=== PATIENT | female | born 1990 | race Caucasian/White ===

== ENCOUNTER 2017-09-05 00:55 | Inpatient (IN) | payer OTHER ==
[~2017-09-05] VITALS: Ht 157.5 cm; Wt 61.5 kg
[2017-09-05] VITALS (7 sets, daily range): BP systolic 126–158; BP diastolic 81–99; PULSE 59–109; TEMP 36.6–37; O2SAT 96–98; Ht 157.5 cm; Wt 61.5 kg
[2017-09-05] MEDS ORDERED: LACTATED RINGER'S 1000ML 1,000 ML IV SCH (00:59)
[2017-09-05] MEDS ORDERED: LACTATED RINGER'S 1000ML 1,000 ML IV PRN (00:59)
[2017-09-05] MEDS ORDERED: PENICILLIN G POTASSIUM IV 3 MU in DEXTROSE 5% 100ML 100 ML IV PRN (01:00)
[2017-09-05] MEDS ORDERED: PENICILLIN G POTASSIUM IV 6 MU in DEXTROSE 5% 250ML 250 ML IV ONE (01:00)
[2017-09-05] MEDS ORDERED: PRENTAB26 PO (01:03)
[2017-09-05] MEDS ORDERED: METH10TA2 PO (01:03)
[2017-09-05 01:34] LABS: HEMATOCRIT 34.7 % (37-47); HEMOGLOBIN 11.3 g/dL (12.0-16.0); MEAN CELL VOLUME 81.5 fL (80-100); MEAN CORPUSCULAR HEMOGLOBIN 26.5 pg (25-34); MEAN CORPUSCULAR HGB CONC 32.6 g/dl (32-36); MEAN PLATELET VOLUME 10.3 fL (7.4-10.4); PLATELET COUNT 239 K/uL (130-400); RED CELL DISTRIBUTION WIDTH CV 14.8 % (11.5-14.5); RED CELL DISTRIBUTION WIDTH SD 43.8 fL (36.4-46.3); WHITE BLOOD COUNT 9.76 K/uL (4.8-10.8)
[2017-09-05] MEDS ORDERED: BUPIVACAINE 0.25% 30 ML VIAL ONE (01:44)
[2017-09-05] MEDS ORDERED: EpHEDrine SULFATE INJ 50 MG/ML AMP ONE (01:44)
[2017-09-05] MEDS ORDERED: FENTANYL CITRATE INJ 50 MCG/1 ML 2 ML VIAL ONE (01:44)
[2017-09-05] MEDS ORDERED: FENTANYL 2MCG/ML ROPIV 1.25MG/ML 100ML BAG ONE (01:45)
[2017-09-05 01:56] LABS: ALBUMIN 2.6 gm/dl (3.4-5.0); TOTAL PROTEIN 7.4 gm/dl (6.4-8.2)
[2017-09-05] MEDS ORDERED: OXYTOCIN 30 UNITS/500ML NSS IV ONE (01:58)
[2017-09-05] MEDS ORDERED: SUPERCREAM 0.870 % 15GM JAR EXT PRN (02:30)
[2017-09-05] MEDS ORDERED: OXYTOCIN 30 UNITS/500ML NSS IV PRN (02:30)
[2017-09-05] MEDS ORDERED: DIPHTHERIA/TETANUS/PERTUSSIS 0.5 ML SYR/VIAL IM. ONE (02:30)
[2017-09-05] MEDS ORDERED: OXYCODONE/ACETAMINOPHEN 5-325 TAB PO PRN (02:30)
[2017-09-05] MEDS ORDERED: BENZOCAINE 20% AER SPR 82.5 GM CAN EXT PRN (02:30)
[2017-09-05] MEDS ORDERED: ACETAMINOPHEN 325 MG TAB PO PRN (02:30)
[2017-09-05] MEDS ORDERED: LANOLIN OINT EXT PRN (02:30)
[2017-09-05] MEDS ORDERED: HYDROCORTISONE ACETATE 25 MG SUPP PR PRN (02:30)
--- NOTE | 2017-09-05 03:09 | DELIVERY SUMMARY ---
DATE OF OPERATION: 09/05/2017 VAGINAL DELIVERY NOTE Da arrived in labor and delivery unannounced approximately 1 a.m. No care available for her. The patient said she did have some care in another part of [place] and we were unable to obtain records. She feels that she was approximately 37 weeks. She is an IV drug user and smoker. This is her fifth baby. The patient arrived at 6 cm, rapidly progressed to 8 cm and then membranes ruptured spontaneously. There was thin meconium. She was fully dilated there. She delivered by pushing and somewhat controllably. Mouth and then nares were suctioned. There was a nuchal cord passed over the head x1. Gentle traction used on the baby. No excessive force. Live vigorous infant. Cord clamped and cut. Cord gasses obtained. Cord blood obtained. Placenta removed with gentle traction. IV Pitocin started. No tearing noted. Estimated blood loss 150 mL. I attest to the content of the Intraoperative Record and any orders documented therein. Any exception s are noted below.
[2017-09-05] MEDS: ACETAMINOPHEN/CODEINE 300/30MG TAB PO PRN ×2 (03:22→09:05)
[2017-09-05] MEDS: PRENATAL VITAMIN TAB PO SCH (09:04)
[2017-09-05] MEDS: DOCUSATE SODIUM 100 MG CAP PO SCH ×2 (09:04→19:56)
[2017-09-05] MEDS: IBUPROFEN 600 MG TAB PO PRN ×3 (09:05→23:49)
[2017-09-06] MEDS: ACETAMINOPHEN/CODEINE 300/30MG TAB PO PRN ×2 (00:58→06:01)
--- NOTE | 2017-09-06 05:41 | Discharge Instructions ---
Discharge Instructions Date of Service September 06, 2017. Admission Reason for Admission: LABOR Discharge Discharge Diagnosis / Problem: after delivery Discharge Goals Goal(s): Routine recovery after delivery Medications Continue Dispensed Medications: dermaplast, tucks, inhaler, lansinoh Activity Recommendations Activity Limitations: as noted below . Instructions / Follow-Up Instructions / Follow-Up ACTIVITY RECOMMENDATIONS: * Gradual return to full activity over the next 2-3 weeks. * No lifting - nothing heavier than baby over the next 2-3 weeks. * Do not engage in vigorous exercise, sexual activity or sports until cleared by your physician. * Do not drive or operate any motorized equipment until cleared by your physician. * You may shower/bathe daily. MEDICATIONS: For discomfort or pain, you may use Acetaminophen (Tylenol), Ibuprofen (Advil), or Naproxen (Aleve) following the package directions. For constipation you may use Colace following the package directions. BREAST CARE: If you are not breast feeding: * Wear a supportive bra 24 hours a day for one to two weeks. * Avoid stimulating your breasts and nipples as much as possible during the first few weeks after delivery. * When taking a shower, have the warm water hit your back, not breasts. * When your breasts feel full, apply ice packs. Usually three to four times a day helps ease the discomfort. * Take a mild pain medication (Tylenol / Motrin) when you are uncomfortable. If breast feeding: * Use breast milk to lubricate nipples. Lansinoh cream may be used for sore nipples. You do not need to remove cream prior to breast feeding. If using a different brand of cream, check the label for directions regarding removal of cream prior to nursing. * Wear a supportive bra. * If having problems with breasts or breast feeding, call a consultant internship or your health care provider. EPISIOTOMY CARE: After delivery, if you have an episiotomy (stitches), the following steps will ease discomfort and aid healing. * For the first 24 hours after delivery, place ice packs next to your episiotomy to help reduce swelling. * After the first 24 hour-period, sitz baths, either portable or in the tub, are suggested. A shower with a shower arm sprayed over the episiotomy may be comforting. * Brenna care should be done after each voiding and bowel movement. Squirt warm water from a plastic bottle over the perineum (region of the body between the anus and urinary opening) and pat dry. * Use Dermoplast to ease discomfort. Shake container. [place] directly over the episiotomy. Place a Tucks on a clean sanitary pad next to your episiotomy. SPECIAL CARE INSTRUCTIONS: When you are discharged from the hospital, it is important for you to follow the instructions listed below: * During the first week at home, you should be able to care for yourself and your baby. In addition, the usual light household activities are encouraged. * Limit your activities to the way you feel. Do not try to clean the house or move furniture. Be sensible. * If you actively engage in sports and have done so up until the time of your delivery, you may resume these activities as soon as you feel able. This may take up to one month or even longer. Use good judgment. * Continue to take your vitamins for at least six weeks after the of your baby. * Your diet need not be limited unless you were on a special diet before your delivery. Breast-feeding mothers need around 2500 calories per day and at least 64-80 ounces of fluid per day (8 to 10 glasses). * You should eat foods from the four major food groups. Crash diets or fad diets are to be avoided. Eating lean meats, fresh fruits and vegetables, low-fat dairy products, high fiber foods and a regular exercise program, will help you get back to your pre- weight without putting your health at risk. * Constipation is sometimes a problem after delivery. Take a mild laxative as needed. If breast feeding, Milk of Magnesia is acceptable to use. You may use a suppository or Fleets enema if no episiotomy. * A daily shower or tub bath is suggested. Be sure to thoroughly and gently dry the perineum. * A bloody vaginal discharge will usually continue until around four weeks post . A small amount of bleeding may continue for as long as six weeks. Vaginal discharge changes from the bright red bleeding after delivery to pink then brownish and finally yellowish-pink before becoming white and disappearing. * Bleeding may increase with activity. Your first period may come in 4-8 weeks. If you are breast feeding, your period may be delayed even longer. * [place] (sex) can begin whenever both you and your partner feel comfortable and do not have any form of genital infection. It is recommended that you wait at least six weeks for internal and external healing to occur. If you have questions, please talk to your health care practitioner. A condom should be used to prevent infection and . * Foreplay, gentle intercourse and lubrication is very important the first several times to prevent pain. A water-based lubricant such as K-Y jelly or Astroglide may be used. * If you have RH negative blood and your baby is RH positive, you will receive RHOGAM by injection prior to discharge. The nurse will give you a card to keep with you that has the date and place that you received RHOGAM after delivery. * During your care, you had a Rubella screen done to check for the presence of rubella antibodies in your blood. If your test was negative, you will receive a Rubella vaccine prior to discharge. This vaccine may cause a fever, soreness at the injection site and flu-like symptoms. If these symptoms persist, notify your health care practitioner. is not advised for one month after a Rubella vaccine. * Verbalizes understanding of car seat law as reviewed with patient nursing. * Car Seat hand-out given and reviewed with patient by nursing. * Shaken baby information reviewed with patient by nursing. Call you doctor if: * Heavy bleeding (saturating several pads an hour) or passing clots the size of your fist. * A fever >101 degrees F (38.3 degrees C) on two occasions four hours apart and /or chills. * Unusual pain in the pelvic or vaginal areas. * "Baby Blues" lasting longer than two weeks. If you have any questions or concerns, call your health care practitioner at . FOLLOW UP VISIT: * Please call the office at to schedule a 1 week and 6 week examination. It is important you keep this appointment. It is important for you to make arrangements for either yearly or twice yearly check ups. If you have a local armored machine operator, you can followup there at 6wks as well but you must followup somewhere. Your blood pressure has been elevated and you should be seen for blood pressure check in the office in one week. Current Hospital Diet Patient's current hospital diet: Regular OB Diet Discharge Diet Recommended Diet: Regular Diet Pending Studies Studies pending at discharge: no Medical Emergencies . Who to Call and When: Medical Emergencies: If at any time you feel your situation is an emergency, please call 911 immediately. . Non-Emergent Contact Non-Emergency issues call your: [facility] [facility] . . "Provider Documentation" section prepared by Joaquina Ramirez. .
[2017-09-06 06:37] LABS: HEMATOCRIT 33.8 % (37-47); HEMOGLOBIN 10.9 g/dL (12.0-16.0)
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
[2017-09-06] MEDS: PRENATAL VITAMIN TAB PO SCH (07:50)
[2017-09-06] MEDS: DOCUSATE SODIUM 100 MG CAP PO SCH (07:50)
[2017-09-06 08:00] VITALS: BP 125/85; PULSE 60; TEMP 36.7; O2SAT 100
[2017-09-06 13:32] LABS: HEPATITIS C VIRAL RNA BY PCR <15 NOT DETECTED IU/ML (<15); HEPATITIS C VIRAL RNA(LOG) PCR <1.18 NOT DETECTED LOG IU/ML (<1.18)
[2017-09-06 15:15] VITALS: BP 130/84; PULSE 84; TEMP 37.2; O2SAT 97
[2017-09-06] MEDS ORDERED: BISACODYL 5 MG TABEC PO SCH (20:00)
[2017-09-07] MEDS ORDERED: BISACODYL 10 MG SUPP PR PRN (07:00)
[2017-09-08 15:36] LABS: HEPATITIS C RNA TMA QUAL Not detected
== END 2017-09-06 17:30 | disposition home or self-care (01) | DRG 775 ==
LOC: MERGE 00:55 → C.LD 00:55 → UNMERGE 00:55 → C.OBG 06:20
PROVIDERS: ADMIT Obstetrics & Gynecology; ATTEND Obstetrics & Gynecology
PROC: 10E0XZZ Delivery of Products of Conception, External Approach (ICD-10-PCS; principal; 2017-09-05)
DX: O99.324 Drug use complicating childbirth (principal); O99.334 Smoking (tobacco) complicating childbirth; O69.82X1 Labor and delivery complicated by other cord entanglement, without compression, fetus 1; F11.10 Opioid abuse, uncomplicated; F17.200 Nicotine dependence, unspecified, uncomplicated; Z37.0 Single live birth; Z3A.37 37 weeks gestation of pregnancy